=== PATIENT | female | born 1990 | race Two or more races ===

== ENCOUNTER 2020-11-06 03:59 | Emergency (ER) | payer BC ==
[~2020-11-06] VITALS: Ht 157.5 cm; Wt 68.9 kg
== END 2020-11-06 08:07 | disposition home or self-care (01) ==
LOC: ER 03:59
DX: J45.901 Unspecified asthma with (acute) exacerbation (principal); Z03.818 Encounter for observation for suspected exposure to other biological agents ruled out; R06.02 Shortness of breath